=== PATIENT | male | born 1965 | race Caucasian/White ===

== ENCOUNTER → 2024-10-11 | Outpatient (CLI) | payer OTHER, SELFPAY ==
--- NOTE | 2024-10-11 15:00 | XR_ITS ---
Examination: MRI right humerus, without contrast Date and time of exam: October 11, 2024, 1612 hours, comparison September 26, 2023 INDICATIONS: Right arm pain distal humerus pain and weakness one year after wrestling injury, diagnosis strain of the biceps tendon Technique: Multiple axial sagittal and coronal images of the right humerus have been obtained with the Siemens high-resolution 1.5 Laura MRI scanner. Images obtained include T2-weighted fat-suppressed sagittal sections, TR 3500, TE 46, T2 weighted coronal fat suppressed images, TR 3050, TE 84, T2-weighted transverse fat suppressed images, TR 3260, TE 63, proton density transverse images, TR 4720 TE 46, and T1 weighted coronal images, TR 560, TE 13. Findings: Shoulder image quality is poor Long head of the biceps appears in the bicipital groove but visualization is limited No definite retraction of the biceps tendon No hematoma in the arm musculature IMPRESSION: Limited study Consider high resolution MRI shoulder and elbow without contrast to best assess superior biceps labral region and insertion of the long head of the biceps into the radial tuberosity
--- NOTE | 2024-10-11 15:45 | XR_ITS ---
Examination: MRI lumbar spine without contrast Date and time of exam: October 11, 2024 1652 hrs. Indications: Low back pain radiating to the hips beginning 15 years ago worse the last 6 months Technique: Multiple MRI axial and sagittal sections lumbar spine. Sagittal T2-weighted images, TR 3500, TE 118 T1 weighted transverse sections, TR 688 T8.5, T2-weighted sagittal sections T1 weighted sagittal sections TR 621, TE 30 T2 axial sections, TR 4, 190, TE 84. Findings: Adequate alignment lumbar vertebral bodies on the lateral view. Normal marrow signal lumbar vertebral bodies. Advanced disc narrowing L4-L5. Diffuse lumbar disc desiccation. No spondylolisthesis. L5-S1 2 mm central lumbar disc bulge L4-L5 3 mm central lumbar disc bulge L3-L4 no disc protrusion L2-L3 3 mm central lumbar disc bulge L1-L2 no disc protrusion Impression: Advanced degenerative disc disease L4-L5 Small lumbar disc bulges as above
== END | disposition home or self-care (01) ==
PROVIDERS: PCP Internal Medicine; Referring Provider Family Medicine; Visit Provider Family Medicine
DX: M51.360 Other intervertebral disc degeneration, lumbar region with discogenic back pain only (principal); S46.211A Strain of muscle, fascia and tendon of other parts of biceps, right arm, initial encounter; X58.XXXA Exposure to other specified factors, initial encounter
CPT/HCPCS: 72148; 73218